=== PATIENT | female | born 1970 | race African-American/Black ===

== ENCOUNTER 2018-11-16 13:45 | Outpatient (CLI) | payer MEDICARE, MEDICAID ==
--- NOTE | 2018-11-18 17:24 | RAD ---
2 views chest. HISTORY: Dyspnea. The and lateral views the chest obtained. The lungs are well aerated. No evidence of active intrathoracic disease seen. No evidence of effusion s, pneumonia or pneumothorax seen. IMPRESSION: Unremarkable 2 views chest.
== END 2018-11-16 13:46 | disposition home or self-care (01) ==
LOC: RAD 13:45
PROVIDERS: ATTEND Internal Medicine Pulmonary Disease
DX: R06.00 Dyspnea, unspecified (principal)
CPT/HCPCS: 71046

== ENCOUNTER 2019-01-05 11:29 | Outpatient (CLI) | payer MEDICARE, MEDICAID ==
--- NOTE | 2019-01-05 15:09 | MMO ---
Bilateral MAMMO Bilat Screen [facility]. CLINICAL HISTORY: Patient is 48 years old and is seen for screening. The patient has the following family history of breast cancer: paternal aunt, great. The patient has no personal history of cancer. The patient has a history of bilateral Excisional Biopsy in 1986 - benign - 3 lumps on right and 1 lump on left. VIEWS: The views performed were: bilateral craniocaudal with tomosynthesis and bilateral mediolateral oblique with tomosynthesis. FILMS COMPARED: The present examination has been compared to prior imaging studies performed at [facility] on 11/03/2011, and at [facility] on 05/29/2010 and 06/03/2010. MAMMOGRAM FINDINGS: There are scattered fibroglandular densities. There are post-surgical scars seen in both breasts. Benign calcifications are noted bilaterally. There are no suspicious masses, suspicious calcifications, or new areas of architectural distortion. IMPRESSION: THERE IS NO MAMMOGRAPHIC EVIDENCE OF MALIGNANCY. A ROUTINE FOLLOW-UP MAMMOGRAM IN 1 YEAR IS RECOMMENDED. THE RESULTS OF THIS EXAM WERE SENT TO THE PATIENT. ACR BI-RADS Category 2 - Benign finding MAMMOGRAPHY NOTE: 1. A negative mammogram report should not delay a biopsy if a dominant of clinically suspicious mass is present. 2. Approximately 10% to 15% of breast cancers are not detected by mammography. 3. Adenosis and dense breasts may obscure an underlying neoplasm. Reported by: JULIANO DYER MD Electonically Signed: [id number]
== END 2019-01-05 11:30 | disposition home or self-care (01) ==
LOC: BICMAMMO 11:29
PROVIDERS: ATTEND Family Medicine
DX: Z12.31 Encounter for screening mammogram for malignant neoplasm of breast (principal); Z80.3 Family history of malignant neoplasm of breast; Z91.89 Other specified personal risk factors, not elsewhere classified
CPT/HCPCS: 77063; 77067

== ENCOUNTER 2019-01-20 08:44 | Outpatient (CLI) | payer MEDICARE, MEDICAID ==
[2019-01-20 10:35] LABS: #Lymphocytes 2.3 thou/uL (1.20-3.40); #Monocytes 0.8 thou/uL (0.11-0.59); #Neutrophils 10.9 thou/uL (1.40-6.50); %Basophils 0.1 % (0.0-1.0); %Eosinophils 0.1 % (0.0-10.0); %Lymphocytes 16.4 % (21.0-51.0); %Monocytes 5.4 % (0.0-10.0); %Neutrophils 78.1 % (42.0-75.0); Hemoglobin 13.4 g/dL (12.0-16.0); Mean Corpuscular HGB CONC 33.8 g/dL (32.0-36.0); Mean Corpuscular Hemoglobin 31.1 pg (27.0-31.0); Mean Corpuscular Volume 91.9 fL (78.0-98.0); Platelet Count 224 thou/uL (130-400); RBC Distribution Width 13.6 % (11.5-14.5); Red Blood Cell (RBC) Count 4.31 mill/uL (4.20-5.40)
[2019-01-20 10:54] LABS: Anion Gap 15 mmol/L (10-20); BUN (Urea Nitrogen) 14 mg/dL (7.0-18.7); Calc. Creatinine Clearance 0 mL/min (70-130); Calcium 9.9 mg/dL (7.8-10.44); Carbon Dioxide 22 mmol/L (22-29); Chloride 101 mmol/L (98-107); Estimated GFR-MDRD 63; Glucose 271 mg/dL (70-105); Potassium 4.5 mmol/L (3.5-5.1); Sodium 133 mmol/L (136-145)
--- NOTE | 2019-01-20 12:51 | EKG ---
Test Reason : Blood Pressure : / mmHG Vent. Rate : 060 BPM Atrial Rate : 060 BPM P-R Int : 128 ms QRS Dur : 086 ms QT Int : 410 ms P-R-T Axes : 055 070 056 degrees QTc Int : 410 ms Normal sinus rhythm Normal ECG When compared with ECG of 21-JUL-2016 13:44, No significant change was found Confirmed by UZMA HARRINGTON, DR. Esparza ([id number]) on 01/20/2019 12:51:05 PM Referred By: CLARISA Confirmed By:DR. Vilma GUSMAN MD
== END 2019-01-20 08:45 | disposition home or self-care (01) ==
LOC: LABBT 08:44
PROVIDERS: ATTEND Orthopaedic Surgery
DX: Z01.818 Encounter for other preprocedural examination (principal); M67.431 Ganglion, right wrist
CPT/HCPCS: 80048; 85025; 93005; 93010

== ENCOUNTER 2019-01-26 07:50 | Day surgery (SDC) | payer MEDICARE, MEDICAID ==
[2019-01-20 09:05] VITALS: BMI 27.3
--- NOTE | 2019-01-25 08:53 | HP ---
HISTORY OF PRESENT ILLNESS: The patient is a 48-year-old female, who has a several month history of a mass on the volar aspect of her right wrist, which is gradually increased in size and is painful. It is now interfering with day-to-day activities. PAST MEDICAL HISTORY: The patient has history of hypertension and diabetes. She has had symptoms of trigger finger of her middle finger, which had been improved with cortisone injection. She has also degenerative arthritis of her left knee, which improved following the cortisone injection. PAST SURGICAL HISTORY: She has had a hysterectomy in the past. CURRENT MEDICATIONS: Include, 1. Etodolac. 2. Gabapentin. 3. Omeprazole. 4. Escitalopram. 5. Lipitor. 6. Glipizide. 7. P.r.n. hydrocodone. ALLERGIES: THERE ARE NO KNOWN ALLERGIES. FAMILY HISTORY: Otherwise unremarkable. SOCIAL HISTORY: Otherwise unremarkable. REVIEW OF SYSTEMS: Otherwise unremarkable. PHYSICAL EXAMINATION: GENERAL: Reveals a healthy female. HEENT: Unremarkable. NECK: Supple. CHEST: Clear. HEART: Regular rate and rhythm. ABDOMEN: Soft, nontender. PELVIC: Deferred. RECTAL: Deferred. BREASTS: Deferred. EXTREMITIES: Pertinent findings with the right wrist. There is a 1 x 1 cm firm probably cystic mass over the volar radial aspect of the wrist, which is closely associated with the radial artery. It is tender. There is full range of motion. NEUROVASCULAR: Intact. Adal testing reveals good collateral flow. IMPRESSION: 1. Ganglion both volar and carpal ganglion, right wrist. 2. History of hypertension. 3. History of diabetes. PLAN: Surgical excision of ganglion, right wrist. The nature of the surgery, length of recovery, and potential complications such as infection, loss of motion, incomplete relief, neurovascular injury, recurrence, and need for additional treatment, repeat surgery have been discussed in detail. Job ID: [id number]
[2019-01-26] MEDS ORDERED: ceFAZolin Sodium (SDC) 2 GM/100 ML BAG ONE (09:03)
[2019-01-26] MEDS ORDERED: Bupivacaine PF 0.5% 30 ML VIAL ONE (09:32)
[2019-01-26] MEDS ORDERED: Insulin Regular 300 UNITS/3 ML VIAL ONE (09:51)
--- NOTE | 2019-01-26 13:38 | OP ---
DATE OF PROCEDURE: 01/26/2019 ANESTHESIA: General. PREOPERATIVE DIAGNOSIS: Volar carpal ganglion, right wrist. POSTOPERATIVE DIAGNOSIS: Volar carpal ganglion, right wrist. PROCEDURE PERFORMED: Excision of volar carpal ganglion, right wrist. DESCRIPTION OF PROCEDURE: After satisfactory anesthesia was induced in supine position, the patient was prepped and draped in routine manner. The limb was elevated and the tourniquet inflated to 250 mmHg. A 3 cm longitudinal incision was made over the palpable mass over the volar radial aspect of the wrist, carried down through the subcutaneous tissues. Bleeding points controlled with cautery. Using sharp and blunt dissection, the mass was excised. It appeared to be a typical ganglion. It was intimately associated with the radial artery, it was teased off the artery. Communicating veins were cauterized as the artery was protected. The mass was excised in its entirety along with a window of the volar wrist capsule, which had appeared to be originating from and sent to Pathology. Wound was then thoroughly irrigated and infiltrated with 10 mL of 0.5% plain Marcaine. The tourniquet was released after 18 minutes. There was no excessive bleeding. The radial artery was palpable, and the wound closed with running subcuticular 3-0 nylon. A sterile bulky compressive dressing was applied, and the patient was immobilized in a volar plaster splint. She was awakened and taken from the operating room in stable condition. There were no apparent intraoperative complications. ESTIMATED BLOOD LOSS: Negligible. The patient will be discharged home in satisfactory condition, instructed on ice elevation and given written cast care instructions. She has [place] 10 at home for pain, and she will be rechecked in my office in 10 to 14 days or sooner if there are any problems prior to that time. Job ID: [id number]
== END 2019-01-26 11:50 | disposition home or self-care (01) ==
LOC: SDC 07:50
PROVIDERS: ATTEND Orthopaedic Surgery
PROC: 0RBN0ZZ Excision of Right Wrist Joint, Open Approach (ICD-10-PCS; principal; 2019-01-26)
DX: M67.431 Ganglion, right wrist (principal); E11.9 Type 2 diabetes mellitus without complications; I10 Essential (primary) hypertension; M17.12 Unilateral primary osteoarthritis, left knee; M65.332 Trigger finger, left middle finger; Z79.4 Long term (current) use of insulin; Z79.899 Other long term (current) drug therapy; Z88.2 Allergy status to sulfonamides; Z88.8 Allergy status to other drugs, medicaments and biological substances
CPT/HCPCS: 36416; 88304; J0690; J1815; S0020

== ENCOUNTER 2019-03-16 12:44 | Outpatient (CLI) | payer MEDICARE, MEDICAID ==
--- NOTE | 2019-03-22 10:35 | PFT ---
PATIENT HISTORY: HEIGHT: 68 IN WEIGHT: 192 SMOKER: YES HOW LON PACKS PER DAY: 2 PACKS PRODUCTIVE COUGH: LUNG DISEASE: PHYSICIAN INTERPRETATION FINAL REPORT: Patient had fare effort and good cooperation. PFT data: FVC 2.70 (80%), FEV1 2.32 (86%), FEV1/FVC 0.86. RV 2.11 (119%), TLC 4.69 (91%) DIFFUSION 22.64 (99%) The FVC falls at the lower limits of normal. The FEV1 is normal. The ratio is also normal suggesting there is no significant obstructive air flow limitation. Lung volumes are normal. Diffusion Capacity is normal. IMPRESSION: Overall, these pulmonary function studies are essentially normal. Minimal early restrictive process, cannot be excluded. I have no priors for comparison. Alarm Adjuster: DIEGO Ict Business Analyst: DIEGO ROBLES
== END 2019-03-16 12:45 | disposition home or self-care (01) ==
LOC: CP 12:44
PROVIDERS: ATTEND Internal Medicine Pulmonary Disease
DX: R06.09 Other forms of dyspnea (principal)
CPT/HCPCS: 94060; 94727; 94729

== ENCOUNTER 2019-12-23 05:05 | Outpatient (CLI) | payer MEDICARE, MEDICAID, OTHER ==
[2019-12-23 14:03] LABS: #Basophils 0.1 thou/uL (0.0-0.2); #Eosinphils 0.1 thou/uL (0.0-0.7); #Lymphocytes 2.4 thou/uL (1.20-3.40); #Monocytes 0.4 thou/uL (0.11-0.59); #Neutrophils 4.3 thou/uL (1.40-6.50); %Basophils 0.9 % (0.0-1.0); %Eosinophils 1.3 % (0.0-10.0); %Lymphocytes 32.9 % (21.0-51.0); %Monocytes 5.6 % (0.0-10.0); %Neutrophils 59.3 % (42.0-75.0); Hemoglobin 12.6 g/dL (12.0-16.0); Mean Corpuscular HGB CONC 31.9 g/dL (32.0-36.0); Mean Corpuscular Hemoglobin 29.8 pg (27.0-31.0); Mean Corpuscular Volume 93.3 fL (78.0-98.0); Mean Platelet Volume 11.7 fL (7.4-10.4); Platelet Count 232 thou/uL (130-400); RBC Distribution Width 11.9 % (11.5-14.5); Red Blood Cell (RBC) Count 4.24 mill/uL (4.20-5.40); White Blood Cell (WBC) Count 7.2 thou/uL (4.8-10.8)
[2019-12-23 14:04] LABS: Anion Gap 11 mmol/L (10-20); BUN (Urea Nitrogen) 13 mg/dL (7.0-18.7); Calc. Creatinine Clearance 0 mL/min (70-130); Carbon Dioxide 29 mmol/L (22-29); Chloride 103 mmol/L (98-107); Estimated GFR-MDRD 62; Glucose 273 mg/dL (70-105); Potassium 4.2 mmol/L (3.5-5.1); Sodium 139 mmol/L (136-145)
[2019-12-24 12:36] LABS: SARS-CoV-2 MS2 Positive; SARS-CoV-2 N Gene Negative; SARS-CoV-2 S Gene Negative; SARS-CoV-2 orf1ab Negative
== END 2019-12-23 05:06 | disposition home or self-care (01) ==
LOC: LABBT 05:05
PROVIDERS: ATTEND Orthopaedic Surgery
DX: Z01.818 Encounter for other preprocedural examination (principal); Z11.59 Encounter for screening for other viral diseases; M65.331 Trigger finger, right middle finger
CPT/HCPCS: 80048; 85025; 93005; U0003; 87635; 93010

== ENCOUNTER 2019-12-28 07:05 | Day surgery (SDC) | payer MEDICARE, MEDICAID ==
[2019-12-21 10:13] VITALS: BMI 28.8
--- NOTE | 2019-12-27 08:46 | HP ---
HISTORY OF PRESENT ILLNESS: The patient is a female with a several month history of pain and triggering in her right middle finger rest, restriction of activities, and anti-inflammatory medications and previous injection. It is now interfering with day-to-day activities. PAST MEDICAL HISTORY: The patient has a history of diabetes, liver disease, depression, and also chronic pain. CURRENT MEDICATIONS: Include; 1. Etodolac. 2. Gabapentin. 3. Escitalopram. 4. Omeprazole. 5. Lipitor. 6. Glipizide. 7. Hydrocodone. 8. Lisinopril. ALLERGIES: SHE HAS NO KNOWN ALLERGIES. FAMILY HISTORY: Otherwise unremarkable. SOCIAL HISTORY: Otherwise unremarkable. REVIEW OF SYSTEMS: Otherwise unremarkable. PHYSICAL EXAMINATION: GENERAL: Healthy female. HEENT: Unremarkable. NECK: Supple. CHEST: Clear. HEART: Regular rate and rhythm. ABDOMEN: Soft, nontender. PELVIC: Deferred. RECTAL: Deferred. BREASTS: Deferred. EXTREMITIES: Pertinent findings of the right hand; there is tenderness and prominence over the A1 becca of the right middle finger. There is triggering with range of motion. Neurovascular exam is intact. All tendons are functioning. IMPRESSION: Trigger finger, right middle finger. PLAN: Right middle trigger finger release. The nature of the surgery, length of recovery, and potential complications such as infection, loss of motion, incomplete relief, neurovascular injury, digital nerve injury, and need for additional treatment or repeat surgery have been discussed in detail. Job ID: [id number]
[2019-12-28] MEDS ORDERED: Insulin Regular 300 UNITS/3 ML VIAL ONE (08:31)
[2019-12-28] MEDS ORDERED: Fentanyl 100 MCG/2 ML VIAL ONE (08:40)
[2019-12-28] MEDS ORDERED: PROPOFOL 20 ML ONE (08:40)
[2019-12-28] MEDS ORDERED: Midazolam HCl 2 mg/2 ml Vial ONE (08:40)
[2019-12-28] MEDS ORDERED: Bupivacaine PF 0.5% 30 ML VIAL ONE (09:20)
--- NOTE | 2019-12-28 10:40 | OP ---
DATE OF PROCEDURE: 12/28/2019 ANESTHESIA: General. PREOPERATIVE DIAGNOSIS: Right middle trigger finger. POSTOPERATIVE DIAGNOSIS: Right middle trigger finger. PROCEDURE PERFORMED: Right middle trigger finger release. DESCRIPTION OF PROCEDURE: After satisfactory anesthesia was induced in supine position, the patient was prepped and draped in routine manner. The right arm was elevated and exsanguinated with an Esmarch bandage, and the tourniquet was inflated to 250 mmHg. An oblique incision was made in the palmar crease that was overlying the A1 becca of the right middle finger, carried down through the subcutaneous tissues, and bleeding points were controlled with Bovie cautery. Using sharp and blunt dissection, the A1 becca was identified. The digital neurovascular bundles were retracted and protected throughout the procedure. The A1 becca was then divided in its entirety from proximal to distal. The segment of the becca excised, it was quite tight and moderate synovitis was present. Both flexor tendons could then be pulled into the wound, and there was full range of motion and no further triggering. The wound was then thoroughly irrigated. Metacarpal block was accomplished with 10 mL of 0.5% Marcaine plain. The skin was then closed with interrupted 3-0 nylon, and a sterile bulky compressive dressing was applied. The tourniquet deflated after 15 minutes. Hand promptly pinked up. The patient was awakened and taken to the recovery room in stable condition. There were no apparent intraoperative complications. Estimated blood loss was negligible. The patient will be discharged to home in satisfactory condition. She will on ice and elevation and given written wound care instructions. She has [place] 5 at home for pain. She will be rechecked in my office in approximate 2 weeks or sooner if there are any problems prior to that time. Job ID: [id number]
== END 2019-12-28 10:26 | disposition home or self-care (01) ==
LOC: SDC 07:05
PROVIDERS: ATTEND Orthopaedic Surgery
PROC: 0LN70ZZ Release Right Hand Tendon, Open Approach (ICD-10-PCS; principal; 2019-12-28)
DX: M65.331 Trigger finger, right middle finger (principal); E11.9 Type 2 diabetes mellitus without complications; F32.9 Major depressive disorder, single episode, unspecified; G89.29 Other chronic pain; K76.9 Liver disease, unspecified; Z79.4 Long term (current) use of insulin; Z79.82 Long term (current) use of aspirin; Z79.899 Other long term (current) drug therapy; Z88.2 Allergy status to sulfonamides; Z88.8 Allergy status to other drugs, medicaments and biological substances
CPT/HCPCS: 36416; J0690; J1815; J2250; J2704; J3010; S0020

== ENCOUNTER 2020-10-02 12:59 | Outpatient (CLI) | payer MEDICARE, MEDICAID | END 2020-10-02 13:00 | disposition home or self-care (01) | LOC: BICMAMMO 12:59 | PROVIDERS: ATTEND Family Medicine | DX: Z12.31 Encounter for screening mammogram for malignant neoplasm of breast (principal); Z80.3 Family history of malignant neoplasm of breast | CPT/HCPCS: 77063; 77067 ==

== ENCOUNTER 2021-07-25 10:37 | Outpatient (CLI) | payer MEDICARE, MEDICAID ==
[2021-07-25 13:04] LABS: #Eosinphils 0.1 10x3/uL (0.0-0.5); #Monocytes 0.4 10x3/uL (0.0-1.1); %Basophils 0.5 % (0.0-2.0); %Eosinophils 1.5 % (0.0-6.0); %Lymphocytes 42.5 % (18.0-47.0); %Monocytes 6.2 % (0.0-10.0); Hemoglobin 13.3 g/dL (12.0-15.5); Mean Corpuscular HGB CONC 32.4 g/dL (32.0-36.0); Mean Corpuscular Hemoglobin 29.7 pg (27.0-33.0); Mean Corpuscular Volume 91.5 fl (81.6-98.3); Mean Platelet Volume 13.1 fl (7.4-10.4); Platelet Count 235 10x3/uL (150-450); RBC Distribution Width 12.5 % (11.5-14.5); Red Blood Cell (RBC) Count 4.48 10x6/uL (3.90-5.03); White Blood Cell (WBC) Count 6.2 10x3/uL (3.5-10.5)
[2021-07-25 13:05] LABS: Anion Gap 16 mmol/L (10-20); BUN (Urea Nitrogen) 11 mg/dL (9.8-20.1); Calc. Creatinine Clearance 0 mL/min (70-130); Calcium 8.8 mg/dL (7.8-10.44); Carbon Dioxide 23 mmol/L (22-29); Chloride 104 mmol/L (98-107); Glucose 351 mg/dL (70-105); Potassium 4.5 mmol/L (3.5-5.1); Sodium 138 mmol/L (136-145)
[2021-07-25 20:33] LABS: SARS-CoV-2 PCR by NAA Not Detected (NotDetected)
== END 2021-07-25 10:38 | disposition home or self-care (01) ==
LOC: LABBT 10:37
PROVIDERS: ATTEND Orthopaedic Surgery Hand Surgery
DX: Z01.818 Encounter for other preprocedural examination (principal); M65.321 Trigger finger, right index finger; Z20.822 Contact with and (suspected) exposure to COVID-19
CPT/HCPCS: 80048; 85025; 93005; U0003; U0005; 93010

== ENCOUNTER 2021-07-29 11:34 | Day surgery (SDC) | payer MEDICARE, MEDICAID ==
[2021-07-12 10:45] VITALS: BMI 28.8
[2021-07-29] MEDS ORDERED: Fentanyl 250 MCG/5 ML VIAL ONE (12:31)
[2021-07-29] MEDS ORDERED: Insulin Regular 300 UNITS/3 ML VIAL ONE (12:54)
[2021-07-29] MEDS ORDERED: Neomycin-Polymyxin 1 ML AMP ONE (12:59)
[2021-07-29] MEDS ORDERED: Bacitracin Zinc Ointment 30 gm TUBE ONE (12:59)
[2021-07-29] MEDS ORDERED: Bupivacaine PF 0.5% 30 ML VIAL ONE (12:59)
[2021-07-29] MEDS ORDERED: Betamet Acet/Betamet Na Ph 30 MG/5 ML VIAL ONE (12:59)
[2021-07-29] MEDS ORDERED: ceFAZolin Sodium (SDC) 2 GM/100 ML BAG ONE (13:16)
[2021-07-29] MEDS ORDERED: Midazolam HCl 2 mg/2 ml Vial ONE (13:47)
[2021-07-29] MEDS ORDERED: Ondansetron PF 4 MG/2 ML Vial ONE (13:58)
[2021-07-29] MEDS ORDERED: Lidocaine 1% PF 5 ML VIAL ONE (13:58)
[2021-07-29] MEDS ORDERED: ePHEDrine 50 MG/ML VIAL ONE (13:58)
[2021-07-29] MEDS ORDERED: PROPOFOL 200 MG/20 ML VIAL ONE (13:58)
[2021-07-29] MEDS ORDERED: Ketorolac Tromethamine 30 MG/ML VIAL ONE (15:00)
== END 2021-07-29 16:27 | disposition home or self-care (01) ==
LOC: SDC 11:34
PROVIDERS: ATTEND Orthopaedic Surgery Hand Surgery
PROC: 0LN70ZZ Release Right Hand Tendon, Open Approach (ICD-10-PCS; principal; 2021-07-29)
DX: M65.321 Trigger finger, right index finger (principal); E11.9 Type 2 diabetes mellitus without complications; Z79.4 Long term (current) use of insulin; Z79.899 Other long term (current) drug therapy; Z88.2 Allergy status to sulfonamides; Z88.8 Allergy status to other drugs, medicaments and biological substances
CPT/HCPCS: 36416; J0690; J0702; J1815; J1885; J2250; J2405; J2704; J3010; J3490; S0020

== ENCOUNTER 2022-01-29 11:54 | Outpatient (CLI) | payer OTHER | END 2022-01-29 11:55 | disposition home or self-care (01) | LOC: MRI 11:54 | PROVIDERS: ATTEND Family Medicine | DX: G81.94 Hemiplegia, unspecified affecting left nondominant side (principal) | CPT/HCPCS: 70551 ==